=== PATIENT | male | born 1945 | race Caucasian/White ===

== ENCOUNTER 2016-09-05 15:11 | Emergency (ER) | payer MEDICARE ==
[2016-09-05] MEDS ORDERED: Ondansetron INJ* 2 MG/ML VIAL IV ONE (16:04)
[2016-09-05] MEDS ORDERED: Morphine INJ* 4 MG/ML 1 ML SYRINGE IV ONE (16:04)
[2016-09-05] MEDS: NS 0.9% 1000 ML* 2,000 ML IV ONE ×2 (16:25→17:34)
[2016-09-05 16:41] LABS: Hematocrit 30 % (42-52); Hemoglobin 10.1 g/dl (14.0-18.0); Mean Corpuscular HGB Conc 34 g/dl (31-36); Mean Corpuscular Hemoglobin 30 pg (27-31); Mean Corpuscular Volume 90 fL (80-94); Mean Platelet Volume 8 um3 (7.4-10.4); Red Blood Count 3.33 10^6/ul (4.0-5.4); Red Cell Distribution Width 16 % (10.5-15); White Blood Count 8.1 10^3/ul (3.5-10.8)
[2016-09-05 16:44] LABS: Add Diff/Slide Review? Manual Diff Added; Comments Flag Yes
[2016-09-05 16:56] LABS: Albumin 3.4 g/dL (3.2-5.2); BUN/Creatinine Ratio 19.5 (8-20); C Reactive Protein 101.65 mg/L (< 5.00); Calcium 9.3 mg/dL (8.6-10.3); EGFR African American 119.8 (>60); EGFR Non-African American 93.2 (>60); Potassium 4.2 mmol/L (3.5-5.0); Total Bilirubin 0.7 mg/dL (0.2-1.0); Total Protein 6.4 g/dL (6.4-8.9)
[2016-09-05 17:18] LABS: Immature Granulocytes 1 % (0-9); Neutrophil % 66 % (38-83); Reactive Lymph % 3 % (0-6)
[2016-09-05 17:19] LABS: Hypochromasia 1+; Stomatocytes 2+; Target Cells 1+
[2016-09-05 17:20] LABS: Add Path Review? YES
[2016-09-05] MEDS ORDERED: Iohexol 300* (CONTRAST) 10 ML SDV IV ONE (18:19)
--- NOTE | 2016-09-05 18:36 | RAD ---
CLINICAL HISTORY: Right abdominal pain, constipation, history of lymphoma COMPARISON: July 21, 2016 TECHNIQUE: Multiple contiguous axial CT scans were obtained of the abdomen and pelvis after the administration of intravenous contrast. Coronal and sagittal multiplanar reformations are submitted for review. Oral contrast was administered. Delayed images were obtained through the abdomen and pelvis. FINDINGS: LUNG BASES: Again noted are multiple pulmonary parenchymal and pleural-based nodules. There has been progression in size and number of lesions compared to July 21, 2016. LIVER: The liver is diffusely low in attenuation compared to the spleen. There are no focal hepatic parenchymal masses. BILE DUCTS: There is no intrahepatic or extrahepatic biliary dilatation. GALLBLADDER: The gallbladder is normal, without pericholecystic inflammatory change. PANCREAS: The pancreas is normal, without mass or ductal dilatation. SPLEEN: Normal in size and appearance. UPPER GI TRACT: Evaluation of the gastrointestinal tract is limited by incomplete gastric distention. Again noted is a 3 cm diverticulum of the duodenum. SMALL BOWEL AND MESENTERY: The small bowel is normal in contour, course, and caliber. There is no obstruction or dilatation. COLON: Again noted are scattered diverticula of the colon. ADRENALS: Normal bilaterally. KIDNEYS: There has been interval development of moderate right and mild left hydronephrosis BLADDER: Unremarkable PELVIC ORGANS: Again noted is an enlarged prostate with asymmetric enlargement of the seminal vesicles, greater on the right than on the left. This has progressed from the previous examination. AORTA: There is atherosclerosis of the abdominal aorta IVC: Unremarkable LYMPH NODES: There is low-attenuation right inguinal lymph node measuring 1.2 cm in short axis. ABDOMINAL WALL: There is a fat-containing of focal hernia BONES AND SOFT TISSUES: There are mild diffuse degenerative changes. OTHER: None IMPRESSION: 1. THERE HAS BEEN INTERVAL DEVELOPMENT OF RIGHT GREATER THAN LEFT BILATERAL HYDRONEPHROSIS WITH PROGRESSION OF THE ASYMMETRIC ENLARGEMENT OF THE PROSTATE GLAND AND SEMINAL VESICLES. GIVEN THE HISTORY OF LYMPHOMA, THIS IS CONCERNING FOR PROGRESSION OF LYMPHOMATOUS INVOLVEMENT OF THE SEMINAL VESICLES. 2. ADDITIONALLY, THERE HAS BEEN PROGRESSION OF MULTIPLE PULMONARY PARENCHYMAL PLEURAL-BASED NODULES. 3. ATHEROSCLEROSIS. 4. DIVERTICULOSIS
[2016-09-05] MEDS ORDERED: Magnesium CITRATE* 300 ML BTL PO ONE (19:35)
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
[2016-09-05 20:06] VITALS: BP 110/64
== END 2016-09-05 20:05 | disposition home or self-care (01) ==
LOC: ED 15:11
DX: R10.9 Unspecified abdominal pain (principal); N13.30 Unspecified hydronephrosis; R11.2 Nausea with vomiting, unspecified; Z87.891 Personal history of nicotine dependence; K59.00 Constipation, unspecified
CPT/HCPCS: 36415; 74177; 80053; 83605; 83690; 85025; 85060; 85610; 85730; 86140; 96374; 99283; A9270-GY; J2270; J2405; Q9967

== ENCOUNTER 2016-09-08 16:03 | Inpatient (IN) | payer MEDICARE ==
[2016-09-08] MEDS ORDERED: Ondansetron INJ* 2 MG/ML VIAL IV PRN (16:17)
[2016-09-08] MEDS ORDERED: LORazepam TAB(*) 0.5 MG PO PRN (16:18)
[2016-09-08] MEDS ORDERED: Dexamethasone IV* 4 MG/ML 5 ML VIAL (20 MG) ONE (17:23)
[2016-09-08] MEDS: Morphine INJ* 10 MG/ML 1 ML SYRINGE IV PRN ×2 (17:39→21:44)
[2016-09-08] MEDS: Enoxaparin(*) 40 MG/0.4 ML SYR SUBCUT SCH (17:44)
[2016-09-08] MEDS: Pantoprazole IV* 40 MG IV SCH (17:44)
[2016-09-08] MEDS: Dexamethasone IV* 40 MG in NS 0.9% 50 ML* 50 ML IVPB SCH (17:46)
[2016-09-08] MEDS: NS 0.9% 1000 ML* 1,000 ML IV SCH ×2 (18:11→20:07)
[2016-09-08 21:14] LABS: Urine Bilirubin Negative (Negative); Urine Glucose Negative (Negative); Urine Nitrite Negative (Negative)
[2016-09-09] MEDS: Morphine INJ* 10 MG/ML 1 ML SYRINGE IV PRN ×3 (05:28→21:21)
[2016-09-09 06:02] LABS: Hematocrit 27 % (42-52); Hemoglobin 9.1 g/dl (14.0-18.0); Mean Corpuscular HGB Conc 34 g/dl (31-36); Mean Corpuscular Hemoglobin 30 pg (27-31); Mean Corpuscular Volume 90 fL (80-94); Mean Platelet Volume 8 um3 (7.4-10.4); Red Blood Count 3.03 10^6/ul (4.0-5.4); Red Cell Distribution Width 16 % (10.5-15); White Blood Count 5.5 10^3/ul (3.5-10.8)
[2016-09-09 06:04] LABS: Add Diff/Slide Review? Slide Review Added; Comments Flag Yes
[2016-09-09 06:44] LABS: Albumin 2.7 g/dL (3.2-5.2); BUN/Creatinine Ratio 31.7 (8-20); Calcium 8.5 mg/dL (8.6-10.3); EGFR African American 162.4 (>60); EGFR Non-African American 126.3 (>60); Globulin 2.6 g/dL (2-4); Potassium 4.1 mmol/L (3.5-5.0); Total Bilirubin 0.4 mg/dL (0.2-1.0); Total Protein 5.3 g/dL (6.4-8.9)
[2016-09-09] MEDS: NS 0.9% 1000 ML* 1,000 ML IV SCH ×2 (08:04→14:50)
[2016-09-09] MEDS: Clopidogrel TAB* 75 MG PO SCH (08:09)
[2016-09-09] MEDS: Aspirin Low Dose CHEW TAB* 81 MG PO SCH (08:09)
[2016-09-09] MEDS ORDERED: Buffered Lidocaine 0.9% SYRIN* 5 ML/SYR SYRINGE INTRADERM ONE ×2 (11:26)
[2016-09-09] MEDS: Dexamethasone IV* 40 MG in NS 0.9% 50 ML* 50 ML IVPB SCH (11:47)
[2016-09-09] MEDS: Enoxaparin(*) 40 MG/0.4 ML SYR SUBCUT SCH (15:40)
[2016-09-09] MEDS ORDERED: Famotidine IV* 10 MG/ML 2 ML (20 mg) IV ONE (16:00)
[2016-09-09] MEDS ORDERED: Iohexol 180 (CONTRAST) 10 ML SDV IV ONE ×2 (16:18→17:27)
[2016-09-09] MEDS ORDERED: Levofloxacin 500 MG IVPREMIX(* 500 MG/100 ML BAG IVPB ONE (16:58)
[2016-09-09] MEDS ORDERED: fentaNYL* 50 MCG/ML 2 ML VIAL (100 MCG VIAL) ONE (17:05)
[2016-09-09] MEDS ORDERED: Lidocaine 2% PF * 5 ML VIAL ONE (17:19)
[2016-09-09] MEDS ORDERED: Propofol* 10 MG/ML 20 ML BTL IV PUSH ONE (17:19)
[2016-09-09] MEDS ORDERED: Fluorescein 10% INJ* 100 MG/ML AMP ONE (17:22)
[2016-09-09] MEDS ORDERED: DiMENhydriNATE IV* 50 MG/ML VIAL IV PUSH PRN (17:25)
[2016-09-09] MEDS ORDERED: fentaNYL* 50 MCG/ML 2 ML VIAL (100 MCG VIAL) IV PRN (17:25)
[2016-09-09] MEDS ORDERED: Gentamicin ADULT (*) 40 MG/ML VIAL ONE (17:46)
[2016-09-09] MEDS ORDERED: Tamsulosin CAP* 0.4 MG ONE (18:03)
[2016-09-09] MEDS: Pantoprazole IV* 40 MG IV SCH ×2 (18:31→18:46)
[2016-09-09] MEDS ORDERED: NS 0.9% 1000 ML* 1,000 ML IV SCH (19:00)
[2016-09-09] MEDS: Lidocaine 2% JELLY* 6 ML JELLY TOPICAL SCH (21:10)
--- NOTE | 2016-09-09 22:50 | RAD ---
INDICATION: Hydronephrosis COMPARISONS: CT dated September 05, 2016 TECHNIQUE: Fluoroscopy was provided for a retrograde pyelogram and stent placement. Total fluoroscopy time is: 18 seconds FINDINGS: Spot images demonstrate contrast within the renal collecting systems bilaterally, with bilateral hydronephrosis. Bilateral ureteral stents are noted IMPRESSION: FLUOROSCOPY WAS PROVIDED FOR A RETROGRADE PYELOGRAM AND STENT PLACEMENT CPT II Codes: 6045F
--- NOTE | 2016-09-10 00:23 | OP ---
CC: Sandra Brower MD; Umesh Nixon MD; Kassy Kuo MD * DATE OF OPERATION: 09/09/16 - ROOM #411 DATE OF : [birth year] - AGE/SEX: 70 years/male. SURGEON: Neil Kilgore MD ANESTHESIOLOGIST: Dr. Sandoval. ANESTHESIA: General. PRE-OP DIAGNOSES: 1. Bilateral hydronephrosis. 2. Lymphoma. POST-OP DIAGNOSES: 1. Bilateral hydronephrosis. 2. Lymphoma. OPERATIVE PROCEDURE: Cystoscopy, bilateral retrograde pyelograms, bilateral urethral balloon dilatation, and bilateral stent insertion. COMPLICATIONS: None. STENT USED: A 8.5-Dutch 28-cm silicone stent, right and left ureter. POSTOPERATIVE CONDITION: Stable. OPERATING FINDINGS: 1. A soft tissue mass pressing on trigone of urinary bladder (extrinsic pressure probably related to mass and vicinity of seminal vesicles). 2. Bilateral hydronephrosis, right worse than left. INDICATIONS: Floyd Garcia is a 70-year-old gentleman with advanced lymphoma who was noted to have bilateral hydronephrosis. Dr. Nixon called earlier today requesting bilateral stent placement. DESCRIPTION OF PROCEDURE: After induction of general anesthesia, the patient was placed in dorsal lithotomy position, sequential compression devices were in place and functioning. Initial cystoscopy reveled a normal-appearing urethra, a mildly enlarged prostate. The bladder was examined. The trigone was extensively distorted by mass extrinsic to the bladder pressing on the posterior bladder neck and trigone area. This also made it more difficult to localize the ureteral orifices. The right urethral orifice was identified after some initial manipulation and cannulated with a 0.038 guidewire. Retrograde pyelogram revealed right hydronephrosis and proximal hydroureter. The distal ureter was fairly compressed by the extrinsic mass and balloon dilatation was successfully carried out. Once this was done, an 8.5-Dutch 28-cm silicone stent was introduced under fluoroscopic monitoring with good proximal and distal positioning obtained. Next attention was directed to the left side. Once again after the initial retrograde pyelogram, balloon dilatation of the distal ureter was successfully carried out and an 8.5-Dutch 28-cm silicone stent was placed on the left side also. A Govea catheter was placed for temporary bladder drainage. The patient tolerated the procedure satisfactorily and was transferred back to the recovery area in stable condition. [id number]/[facility] #: [id number] MTDAnuja
--- NOTE | 2016-09-10 07:43 | DS ---
- Discharge Summary ADMIT DATE: 09/08/16 DISCHARGE DATE: 09/10/16 DISCHARGE DIAGNOSIS: 1. hydronephrosis 2. uncontrolled nausea and vomiting 3. abdominal pain 4. recurrent lymphoma, transition to diffuse large b cell lymphoma DISCHARGE MEDICATIONS: Home Medications Medication Instructions Recorded Confirmed Type Multiple Vitamin [Multivitamins] 1 cap PO DAILY 03/17/15 09/08/16 History Vitamin E CAP* 400 unit PO DAILY 03/17/15 09/08/16 History Aspirin Low Dose TAB* 81 mg PO DAILY 03/18/16 09/08/16 History Clopidogrel TAB* [Plavix TAB*] 1 tab PO DAILY 04/05/16 09/08/16 History Tamsulosin CAP* [Flomax CAP*] 0.4 mg PO DAILY #30 cap 09/10/16 Rx DISCHARGE FOLLOW UP: 1. 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 treated with RCHOP beginning in March of 2015 with complete response on PET of 07/2015. One year later developed a recurrent lymphoma. PET with varying avidities suggestive of the possibility of recurrence of both his low grade and a high grade lymphoma. Noted to have a very avid seminal vesicle mass, which was biopsied on 09/07. Around the same time he developed refractory nausea and vomiting and abdominal pain. repeat CT with bilateral hydronephrosis. He was admitted for hydration, high dose IV dexamethasone pending diagnosis, and received bilateral ureteral stents last evening. His abdominal pain has essentially resolved and his vomiting is completely gone. His pathology did return recurrent diffuse large b cell lymphoma. His sparks was removed this morning and he is urinating without problems. He is very anxious to go home. He will get a dose of IV dexamethasone today and come in Monday to our office for a dose and for a treatment plan. He will likely need salvage R-ICE. He is constipated and will have treatment prior to discharge. >30 mins spent on this discharge and in counseling
[2016-09-10] MEDS ORDERED: Dexamethasone IV* 4 MG/ML 5 ML VIAL (20 MG) ONE (07:52)
[2016-09-10] MEDS: Clopidogrel TAB* 75 MG PO SCH (07:55)
[2016-09-10] MEDS: Aspirin Low Dose CHEW TAB* 81 MG PO SCH (07:55)
[2016-09-10] MEDS: Lidocaine 2% JELLY* 6 ML JELLY TOPICAL SCH ×2 (07:56→14:01)
[2016-09-10 07:58] LABS: Hematocrit 18 % (42-52); Mean Corpuscular HGB Conc 32 g/dl (31-36); Mean Corpuscular Hemoglobin 29 pg (27-31); Mean Corpuscular Volume 91 fL (80-94); Mean Platelet Volume 8 um3 (7.4-10.4); Red Blood Count 2.02 10^6/ul (4.0-5.4); Red Cell Distribution Width 16 % (10.5-15); White Blood Count 8.1 10^3/ul (3.5-10.8)
[2016-09-10 08:10] LABS: Albumin 2.6 g/dL (3.2-5.2); BUN/Creatinine Ratio 29.3 (8-20); Calcium 8.2 mg/dL (8.6-10.3); EGFR African American 132.8 (>60); EGFR Non-African American 103.3 (>60); Globulin 2.4 g/dL (2-4); Magnesium 1.9 mg/dL (1.9-2.7); Potassium 4.1 mmol/L (3.5-5.0); Total Bilirubin 0.3 mg/dL (0.2-1.0)
[2016-09-10 08:13] LABS: Comments Flag Yes
[2016-09-10 08:16] LABS: Hemoglobin 5.9 g/dl (14.0-18.0)
[2016-09-10 08:37] LABS: Hematocrit 30 % (42-52); Hemoglobin 9.9 g/dl (14.0-18.0); Mean Corpuscular HGB Conc 33 g/dl (31-36); Mean Corpuscular Hemoglobin 30 pg (27-31); Mean Corpuscular Volume 90 fL (80-94); Mean Platelet Volume 8 um3 (7.4-10.4); Red Blood Count 3.36 10^6/ul (4.0-5.4); Red Cell Distribution Width 16 % (10.5-15); White Blood Count 16.2 10^3/ul (3.5-10.8)
[2016-09-10 08:39] LABS: Add Diff/Slide Review? Slide Review Added; Comments Flag Yes
[2016-09-10 08:50] LABS: Albumin 2.9 g/dL (3.2-5.2); BUN/Creatinine Ratio 25.3 (8-20); Calcium 8.6 mg/dL (8.6-10.3); EGFR African American 118.1 (>60); EGFR Non-African American 91.9 (>60); Globulin 2.8 g/dL (2-4); Potassium 4.2 mmol/L (3.5-5.0); Total Bilirubin 0.3 mg/dL (0.2-1.0); Total Protein 5.7 g/dL (6.4-8.9)
[2016-09-10] MEDS ORDERED: Tamsulosin CAP* 0.4 MG PO SCH (09:00)
[2016-09-10 09:02] VITALS: BP 110/48
[2016-09-10] MEDS: Dexamethasone IV* 40 MG in NS 0.9% 50 ML* 50 ML IVPB SCH (09:30)
== END 2016-09-10 15:05 | disposition home or self-care (01) | DRG 694 ==
LOC: MED 16:47
PROVIDERS: ADMIT Internal Medicine Hematology & Oncology; ATTEND Internal Medicine Hematology & Oncology
PROC: BT14ZZZ Fluoroscopy of Kidneys, Ureters and Bladder (ICD-10-PCS; 2016-09-09)
PROC: 0T788DZ Dilation of Bilateral Ureters with Intraluminal Device, Via Natural or Artificial Opening Endoscopic (ICD-10-PCS; principal; 2016-09-09 16:30)
DX: N13.30 Unspecified hydronephrosis (principal); C83.30 Diffuse large B-cell lymphoma, unspecified site; C82.99 Follicular lymphoma, unspecified, extranodal and solid organ sites; R91.8 Other nonspecific abnormal finding of lung field; Z88.0 Allergy status to penicillin; I73.9 Peripheral vascular disease, unspecified; R59.0 Localized enlarged lymph nodes; E78.00 Pure hypercholesterolemia, unspecified; N40.0 Benign prostatic hyperplasia without lower urinary tract symptoms; Z79.82 Long term (current) use of aspirin; Z79.02 Long term (current) use of antithrombotics/antiplatelets; N50.89 Other specified disorders of the male genital organs; K59.00 Constipation, unspecified
CPT/HCPCS: 36415; 49180; 74000; 74177; 74420; 77012; 80053; 81003; 83605; 83690; 83735; 85025; 85060; 85610; 85730; 86140; 88172; 88177; 88184; 88188; 88305; 88360; 96374; 99215; 99222; 99239; 99283; A9270-GY; G0463; J1580; J1642; J1650; J1956; J2270; J2405; J2704; J3010; Q9967

== ENCOUNTER 2016-09-12 06:55 | Inpatient (IN) | payer MEDICARE ==
[2016-09-12] MEDS ORDERED: Morphine INJ* 4 MG/ML 1 ML SYRINGE IV ONE ×2 (07:18→08:42)
[2016-09-12] MEDS ORDERED: Ondansetron INJ* 2 MG/ML VIAL IV ONE (07:18)
[2016-09-12] MEDS ORDERED: NS 0.9% 1000 ML* 1,000 ML IV ONE (07:18)
[2016-09-12 08:15] LABS: Hematocrit 31 % (42-52); Hemoglobin 10.3 g/dl (14.0-18.0); Mean Corpuscular HGB Conc 33 g/dl (31-36); Mean Corpuscular Hemoglobin 30 pg (27-31); Mean Corpuscular Volume 89 fL (80-94); Mean Platelet Volume 9 um3 (7.4-10.4); Red Blood Count 3.48 10^6/ul (4.0-5.4); Red Cell Distribution Width 16 % (10.5-15)
[2016-09-12 08:16] LABS: Add Diff/Slide Review? Slide Review Added
[2016-09-12 08:18] LABS: Albumin 3.1 g/dL (3.2-5.2); C Reactive Protein 54.62 mg/L (< 5.00); EGFR African American 110.4 (>60); EGFR Non-African American 85.9 (>60); Globulin 2.9 g/dL (2-4); Potassium 3.3 mmol/L (3.5-5.0); Total Bilirubin 0.6 mg/dL (0.2-1.0)
--- NOTE | 2016-09-12 08:22 | RAD ---
Indication: Bilateral flank pain. Stent placement 2 days ago. Comparison: September 09, 2016 retrograde pyelogram and stent placement fluoroscopic spot images and September 05, 2016 CT. Technique: Supine view of the abdomen. Report: Innumerable bilateral pulmonary masses visualized at the lung bases. Unremarkable bowel gas pattern. Moderate stool in the colon without significant rectal distension. Bilateral ureteral stents in place. Vascular calcifications noted at the midpole of the LEFT kidney. No suspicious calcifications at the level of either renal fossa or along the expected course of the ureters. Unremarkable soft tissue contours. IMPRESSION: 1. Bilateral ureteral stents in place. No suspicious radiographic finding at the abdomen or pelvis. 2. Bilateral pulmonary masses corresponding with September 05, 2016 CT finding.
[2016-09-12] MEDS ORDERED: Albuterol 2.5 MG/3 ML NEB.SOL* (0.083%) INH PRN (09:24)
[2016-09-12] MEDS ORDERED: Acetaminophen TAB* 325 MG PO PRN (09:24)
[2016-09-12] MEDS ORDERED: Ondansetron INJ* 2 MG/ML VIAL IV PRN (09:24)
[2016-09-12] MEDS ORDERED: Temazepam CAP* 15 MG PO PRN (09:24)
[2016-09-12] MEDS ORDERED: Potassium Chlor TAB* 20 MEQ TAB.ER PO ONE (09:30)
[2016-09-12] MEDS: Enoxaparin(*) 40 MG/0.4 ML SYR SUBCUT SCH (11:30)
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
--- NOTE | 2016-09-12 12:51 | RAD ---
INDICATION: History of metal in LEFT eye. Pre-MRI assessment. COMPARISON: No relevant prior exams available on the [facility] PACS for comparison. TECHNIQUE: AP and lateral views of the orbits were obtained. FINDINGS: No radiopaque foreign bodies are identified at the level of the orbits or visualized calvarium. Dental hardware noted. IMPRESSION: No radiopaque orbital foreign bodies evident.
[2016-09-12] MEDS ORDERED: Gadoteridol* (CONTRAST) 279.3 MG/ML 10 ML IV ONE (13:39)
[2016-09-12] MEDS: Morphine INJ* 2 MG/ML 1 ML SYRINGE IV PRN ×4 (14:24→21:50)
--- NOTE | 2016-09-12 14:56 | RAD ---
Indication: Lymphoma. Nausea and vomiting. Image sequences: Sagittal and axial T1, axial T2, FLAIR, diffusion and susceptibility weighted images of the brain were obtained. 16 mL of ProHance was injected intravenously and postcontrast axial, coronal and sagittal T1-weighted images were repeated. Ventricular structures are midline. No midline shift is noted. The extra-axial spaces are unremarkable. The FLAIR images demonstrates scattered subcortical areas of signal abnormality especially in the frontal lobes bilaterally. These are nonspecific and may represent minor microvascular change or may be associated with migraine headaches. There is no evidence of mass. No evidence of abnormally enhancing lesions are noted. No restriction of diffusion is noted on the diffusion-weighted images. Susceptibility artifact demonstrates no evidence of residual hemosiderin. Mastoid air cells demonstrate some fluid in the right mastoid sinuses. The remainder the paranasal sinuses are unremarkable. Susceptibility artifact from dental work is present. The orbits are grossly unremarkable. IMPRESSION: NONSPECIFIC WHITE MATTER SIGNAL ABNORMALITY IS NOTED IN THE SUBCORTICAL WHITE MATTER BILATERALLY NO OBVIOUS MASS OR ENHANCING LESIONS ARE NOTED. NO ABNORMALLY ENHANCING LESIONS ARE NOTED. NO RESTRICTION OF DIFFUSION IS NOTED. SOME FLUID IN THE RIGHT MASTOID SINUSITIS IS NOTED.
[2016-09-12] MEDS: NS 0.9% w/ 40 Meq KCL 1000 ML* 1,000 ML IV SCH (15:30)
[2016-09-12] MEDS ORDERED: Morphine INJ* 2 MG/ML 1 ML SYRINGE IV PRN (17:16)
[2016-09-12] MEDS ORDERED: Dexamethasone IV* 4 MG/ML 5 ML VIAL (20 MG) ONE (19:05)
[2016-09-12] MEDS: Dexamethasone IV* 12 MG in NS 0.9% 50 ML* 50 ML IVPB ONE ×2 (19:06→19:07)
[2016-09-12] MEDS: Senna TAB PO SCH (20:29)
[2016-09-13 00:10] LABS: Magnesium 1.9 mg/dL (1.9-2.7)
[2016-09-13] MEDS: NS 0.9% w/ 40 Meq KCL 1000 ML* 1,000 ML IV SCH ×2 (04:20→20:42)
[2016-09-13 05:47] LABS: Hematocrit 26 % (42-52); Hemoglobin 8.6 g/dl (14.0-18.0); Mean Corpuscular HGB Conc 33 g/dl (31-36); Mean Corpuscular Hemoglobin 30 pg (27-31); Mean Corpuscular Volume 90 fL (80-94); Mean Platelet Volume 8 um3 (7.4-10.4); Red Blood Count 2.86 10^6/ul (4.0-5.4); Red Cell Distribution Width 16 % (10.5-15); White Blood Count 6.6 10^3/ul (3.5-10.8)
[2016-09-13 06:01] LABS: Albumin 2.6 g/dL (3.2-5.2); BUN/Creatinine Ratio 29.9 (8-20); Calcium 8.6 mg/dL (8.6-10.3); EGFR African American 151.3 (>60); EGFR Non-African American 117.6 (>60); Globulin 2.5 g/dL (2-4); Potassium 4.1 mmol/L (3.5-5.0); Total Bilirubin 0.5 mg/dL (0.2-1.0); Total Protein 5.1 g/dL (6.4-8.9)
[2016-09-13] MEDS: Senna TAB PO SCH ×2 (09:28→20:42)
[2016-09-13] MEDS: Vitamin THERAPEUTIC TAB PO SCH (09:28)
[2016-09-13] MEDS: Tamsulosin CAP* 0.4 MG PO SCH (09:28)
[2016-09-13] MEDS: Aspirin Low Dose CHEW TAB* 81 MG PO SCH (11:29)
[2016-09-13] MEDS: Morphine INJ* 2 MG/ML 1 ML SYRINGE IV PRN ×2 (11:49→16:52)
[2016-09-13] MEDS: Enoxaparin(*) 40 MG/0.4 ML SYR SUBCUT SCH (11:50)
[2016-09-13] MEDS ORDERED: diPHENhydraMINE IV* 50 MG/ML 1 ml VIAL (BENADRYL) ONE (13:16)
[2016-09-13] MEDS ORDERED: diPHENhydraMINE IV* 50 MG in NS 0.9% 50 ML* 50 ML IVPB ONE (13:30)
[2016-09-13] MEDS ORDERED: Acetaminophen TAB* 325 MG PO ONE (13:30)
[2016-09-13] MEDS ORDERED: RITUXIMAB IVPB SCH (14:00)
[2016-09-13] MEDS ORDERED: NS 0.9% IVPB SCH (14:00)
[2016-09-14] MEDS: Morphine INJ* 2 MG/ML 1 ML SYRINGE IV PRN ×2 (04:04→08:26)
[2016-09-14 05:57] LABS: Hematocrit 25 % (42-52); Hemoglobin 8.2 g/dl (14.0-18.0); Mean Corpuscular HGB Conc 33 g/dl (31-36); Mean Corpuscular Hemoglobin 29 pg (27-31); Mean Corpuscular Volume 89 fL (80-94); Mean Platelet Volume 8 um3 (7.4-10.4); Red Blood Count 2.81 10^6/ul (4.0-5.4); Red Cell Distribution Width 16 % (10.5-15); White Blood Count 6.9 10^3/ul (3.5-10.8)
[2016-09-14 06:25] LABS: Albumin 2.4 g/dL (3.2-5.2); BUN/Creatinine Ratio 23.2 (8-20); Calcium 8.2 mg/dL (8.6-10.3); EGFR African American 146.2 (>60); EGFR Non-African American 113.7 (>60); Globulin 2.4 g/dL (2-4); Potassium 3.8 mmol/L (3.5-5.0); Total Bilirubin 0.4 mg/dL (0.2-1.0); Total Protein 4.8 g/dL (6.4-8.9)
[2016-09-14] MEDS: NS 0.9% w/ 40 Meq KCL 1000 ML* 1,000 ML IV SCH (08:26)
[2016-09-14] MEDS: Tamsulosin CAP* 0.4 MG PO SCH (08:31)
[2016-09-14] MEDS: Vitamin THERAPEUTIC TAB PO SCH (08:31)
[2016-09-14] MEDS: Senna TAB PO SCH ×2 (08:31→20:50)
[2016-09-14] MEDS: Enoxaparin(*) 40 MG/0.4 ML SYR SUBCUT SCH (10:23)
--- NOTE | 2016-09-14 11:04 | PN ---
Progress Note - Progress Note SOAP: Subjective: []Feeling well overall, still significant pain with urination, though less bleeding. "[place] now, some clots...but not bright red." States less nausea at this time and no emesis now in a couple days. No BM but "moving" and passing gas. Feels a bit overwhelmed. Asks for to be updated with everything as well. Did fine with Rituximab. No questions about tx. today. PIV right fa bothering him. Medications: Acetaminophen (Tylenol Tab*) 650 mg PO Q4H PRN PRN Reason: FEVER/PAIN Last Admin: 09/13/16 17:33 Dose: 650 mg Albuterol (Ventolin 2.5 Mg/3 Ml Neb.Joseline*) 2.5 mg INH [id number] PRN PRN Reason: sob/wheezing Enoxaparin Sodium (Lovenox(*)) 40 mg SUBCUT Q24H [facility] Last Admin: 09/14/16 10:23 Dose: 40 mg Potassium Chloride/Sodium Chloride (Ns 0.9% W/ 40 Meq Kcl 1000 Ml*) 1,000 mls @ 100 mls/hr IV PER RATE [facility] Last Admin: 09/14/16 08:26 Dose: 100 mls/hr Rituximab 500 mg/ Rituximab (175 mg/ Sodium Chloride) 337.5 mls @ 0 mls/hr IVPB ONCE YAZMIN PRN Reason: As Directed Last Admin: 09/13/16 14:23 Dose: 25 mls/hr Morphine Sulfate (Morphine Inj (Syringe)*) 2 mg IV Q2H PRN PRN Reason: PAIN Last Admin: 09/14/16 08:26 Dose: 2 mg Multivitamins (Theragran Tab*) 1 tab PO DAILY [facility] Last Admin: 09/14/16 08:31 Dose: 1 tab Ondansetron HCl (Zofran Inj*) 4 mg IV Q4H PRN PRN Reason: NAUSEA/VOMITING Last Admin: 09/12/16 17:29 Dose: 4 mg Senna (Senokot Tab*) 1 tab PO BID [facility] Last Admin: 09/14/16 08:31 Dose: 1 tab Tamsulosin HCl (Flomax Cap*) 0.4 mg PO DAILY [facility] Last Admin: 09/14/16 08:31 Dose: 0.4 mg Temazepam (Restoril Cap*) 15 mg PO BEDTIME PRN PRN Reason: INSOMNIA Last Admin: 09/12/16 22:05 Dose: 15 mg Objective: [] Vital Signs Temp Pulse Resp BP Pulse Ox 99.4 F 69 16 123/55 95 09/14/16 07:47 09/14/16 07:47 09/14/16 09:26 09/14/16 07:47 09/14/16 07:47 A&Ox3, EOMI, FLORES HRR, no murmur noted, S1S2 LS clear bilat +BS, abd. soft and tender +PP=bilat., no edema noted Laboratory Results - last 24 hr 09/14/16 09/14/16 05:34 05:34 WBC 6.9 RBC 2.81 L Hgb 8.2 L Hct 25 L MCV 89 MCH 29 MCHC 33 RDW 16 H Plt Count 222 MPV 8 Neut % (Auto) 68.8 Lymph % (Auto) 13.7 L Boyd % (Auto) 15.5 H Eos % (Auto) 1.7 Baso % (Auto) 0.3 Absolute Neuts (auto) 4.7 Absolute Lymphs (auto) 0.9 L Absolute Monos (auto) 1.1 H Absolute Eos (auto) 0.1 Absolute Basos (auto) 0 Absolute Nucleated RBC 0.01 Nucleated RBC % 0.1 Sodium 139 Potassium 3.8 Chloride 108 Carbon Dioxide 27 Anion Gap 4 BUN 16 Creatinine 0.69 Est GFR ( Amer) 146.2 Est GFR (Non-Af Amer) 113.7 BUN/Creatinine Ratio 23.2 H Glucose 87 Calcium 8.2 L Total Bilirubin 0.40 AST 32 ALT 47 Alkaline Phosphatase 63 Total Protein 4.8 L Albumin 2.4 L Globulin 2.4 Albumin/Globulin Ratio 1.0 Assessment: []70 yo m with recurrent lymphoma now on chemotherapy, C1D2 RICE. Plan: []1. Lymphoma: cont. RICE as planned, will need neupogen starting Sun. (D6) 2. Hydronephrosis: s/p stents with decreased bleeding. Follow Cr. 3. PVD: Stop ASA and plavix, cont. DVT prophylactic. 4. N/V/C: improving, though still no BM, can stop K+ replacement
[2016-09-14] MEDS: Aspirin Low Dose CHEW TAB* 81 MG PO SCH (11:22)
[2016-09-14] MEDS ORDERED: Dexamethasone IV* 4 MG/ML 1 ML (4 MG) ONE (12:57)
[2016-09-14] MEDS ORDERED: Dexamethasone IV* 8 MG in NS 0.9% 50 ML* 50 ML IVPB ONE (13:00)
[2016-09-14] MEDS ORDERED: Ondansetron INJ* 2 MG/ML VIAL IV ONE (13:00)
[2016-09-14] MEDS ORDERED: ETOPOSIDE IVPB SCH (14:00)
[2016-09-14] MEDS ORDERED: NS 0.9% IVPB SCH (14:00)
[2016-09-15] MEDS: NS 0.9% 1000 ML* 1,000 ML IV SCH ×2 (03:58→17:07)
[2016-09-15 06:37] LABS: Hematocrit 25 % (42-52); Hemoglobin 8.3 g/dl (14.0-18.0); Mean Corpuscular HGB Conc 33 g/dl (31-36); Mean Corpuscular Hemoglobin 30 pg (27-31); Mean Corpuscular Volume 88 fL (80-94); Mean Platelet Volume 9 um3 (7.4-10.4); Red Blood Count 2.83 10^6/ul (4.0-5.4); Red Cell Distribution Width 16 % (10.5-15); White Blood Count 7.4 10^3/ul (3.5-10.8)
[2016-09-15 06:38] LABS: Add Diff/Slide Review? Slide Review Added; Comments Flag Yes
[2016-09-15 07:10] LABS: Albumin 2.5 g/dL (3.2-5.2); BUN/Creatinine Ratio 28.8 (8-20); Calcium 8.6 mg/dL (8.6-10.3); EGFR African American 175.2 (>60); EGFR Non-African American 136.2 (>60); Globulin 2.4 g/dL (2-4); Potassium 3.7 mmol/L (3.5-5.0); Total Bilirubin 0.4 mg/dL (0.2-1.0); Total Protein 4.9 g/dL (6.4-8.9)
[2016-09-15] MEDS: Tamsulosin CAP* 0.4 MG PO SCH (08:09)
[2016-09-15] MEDS: Vitamin THERAPEUTIC TAB PO SCH (08:09)
[2016-09-15] MEDS: Senna TAB PO SCH ×2 (08:10→21:38)
[2016-09-15] MEDS ORDERED: Fosaprepitant IV* 150 MG in NS 0.9% 250 ML* 145 ML IVPB ONE (09:30)
[2016-09-15] MEDS ORDERED: traMADol TAB* 50 MG PO PRN (09:37)
--- NOTE | 2016-09-15 09:43 | PN ---
Progress Note - Progress Note SOAP: Subjective: []C1D3 RICE Feeling well overall. Pain much better though will occur just prior to peeing. Less blood in urine. No further nausea. BM this AM, large. Still some stomach pain/tenderness. Lovenox inj. sites sore. No neuropathy. Slight headache this AM without vision changes. No SOB. Very concerned about cost of tx. and tearful when talking about certain aspects. Medications: Acetaminophen (Tylenol Tab*) 650 mg PO Q4H PRN PRN Reason: FEVER/PAIN Last Admin: 09/13/16 17:33 Dose: 650 mg Albuterol (Ventolin 2.5 Mg/3 Ml Neb.Joseline*) 2.5 mg INH [id number] AWAKE PRN PRN Reason: sob/wheezing Enoxaparin Sodium (Lovenox(*)) 40 mg SUBCUT Q24H [facility] Last Admin: 09/14/16 10:23 Dose: 40 mg Heparin Sodium (Porcine) (Heparin Flush Port (Ivad)) 5 ml FLUSH DAILY [facility] Last Admin: 09/15/16 07:56 Dose: Not Given Ifosfamide 9,000 mg/ Mesna 9, (000 mg/ Sodium Chloride) 1,000 mls @ 41.667 mls/ hr IVPB ONCE ONE Stop: 09/16/16 15:59 Sodium Chloride (Ns 0.9% 1000 Ml*) 1,000 mls @ 75 mls/hr IV PER RATE [facility] Last Admin: 09/15/16 03:58 Dose: 75 mls/hr Etoposide 180 mg/ Sodium (Chloride) 509 mls @ 509 mls/hr IVPB DAILY@1100 [facility] Stop: 09/16/16 11:59 Carboplatin 575 mg/ Sodium (Chloride) 557.5 mls @ 557.5 mls/hr IVPB ONCE ONE Stop: 09/15/16 12:59 Fosaprepitant 150 mg/ Sodium (Chloride) 150 mls @ 300 mls/hr IVPB ONCE ONE Stop: 09/15/16 09:59 Sodium Chloride (Ns 0.9% 1000 Ml*) 1,000 mls @ 500 mls/hr IV ONCE ONE Stop: 09/15/16 14:59 Dexamethasone Sodium Phosphate (8 mg/ Sodium Chloride) 52 mls @ 208 mls/hr IVPB ONCE ONE Stop: 09/15/16 10:44 Multivitamins (Theragran Tab*) 1 tab PO DAILY [facility] Last Admin: 09/15/16 08:09 Dose: 1 tab Ondansetron HCl (Zofran Inj*) 8 mg IV Q8H [facility] Senna (Senokot Tab*) 1 tab PO BID [facility] Last Admin: 09/15/16 08:10 Dose: 1 tab Tamsulosin HCl (Flomax Cap*) 0.4 mg PO DAILY [facility] Last Admin: 09/15/16 08:09 Dose: 0.4 mg Temazepam (Restoril Cap*) 15 mg PO BEDTIME PRN PRN Reason: INSOMNIA Last Admin: 09/12/16 22:05 Dose: 15 mg Tramadol HCl (Ultram*) 50 mg PO Q6H PRN PRN Reason: PAIN Objective: [] Vital Signs Temp Pulse Resp BP Pulse Ox 97.5 F 55 16 132/61 97 09/15/16 07:35 09/15/16 07:35 09/15/16 09:12 09/15/16 07:35 09/15/16 07:35 A&Ox3, EOMI, FLORES, communicating clearly and states good understanding of plan of care, neuro grossly non-focal HRR, S1S2, no murmur noted LS clear bilat throughout, resp even and non-labored +BS, abd. soft with tenderness and some guarding +PP=bilat. Port LCW benign Laboratory Results - last 24 hr 09/15/16 09/15/16 06:10 06:10 WBC 7.4 RBC 2.83 L Hgb 8.3 L Hct 25 L MCV 88 MCH 30 MCHC 33 RDW 16 H Plt Count 215 MPV 9 Neut % (Auto) 63.5 Lymph % (Auto) 17.6 L Nolan % (Auto) 18.1 H Eos % (Auto) 0.6 Baso % (Auto) 0.2 Absolute Neuts (auto) 4.7 Absolute Lymphs (auto) 1.3 Absolute Monos (auto) 1.3 H Absolute Eos (auto) 0 Absolute Basos (auto) 0 Absolute Nucleated RBC 0.01 Nucleated RBC % 0.1 Sodium 138 Potassium 3.7 Chloride 107 Carbon Dioxide 27 Anion Gap 4 BUN 17 Creatinine 0.59 L Est GFR ( Amer) 175.2 Est GFR (Non-Af Amer) 136.2 BUN/Creatinine Ratio 28.8 H Glucose 107 H Calcium 8.6 Total Bilirubin 0.40 AST 26 ALT 51 Alkaline Phosphatase 63 Total Protein 4.9 L Albumin 2.5 L Globulin 2.4 Albumin/Globulin Ratio 1.0 Assessment: []70 yo m with recurrent DLBCL currently receiving C1 RICE and thus far tolerating well. Plan: []1. Chemo: Cr stable with good urine output therefore will bolus fluid with Ifos per protocol, follow labs daily 2. Pain: doesn't like morphine, trial Tramadol Goal of d/c tomorrow evening with completion of tx.
[2016-09-15] MEDS ORDERED: Dexamethasone IV* 4 MG/ML 1 ML (4 MG) ONE (09:55)
[2016-09-15] MEDS: Enoxaparin(*) 40 MG/0.4 ML SYR SUBCUT SCH (10:07)
[2016-09-15] MEDS: Ondansetron INJ* 2 MG/ML VIAL IV SCH ×2 (10:12→16:16)
[2016-09-15] MEDS ORDERED: Dexamethasone IV* 8 MG in NS 0.9% 50 ML* 50 ML IVPB ONE (10:30)
[2016-09-15] MEDS: NS 0.9% IVPB SCH (11:42)
[2016-09-15] MEDS: ETOPOSIDE IVPB SCH (11:42)
[2016-09-15] MEDS ORDERED: NS 0.9% IVPB ONE ×4 (12:00→16:00)
[2016-09-15] MEDS ORDERED: CARBOPLATIN IVPB ONE ×2 (12:00→15:00)
[2016-09-15] MEDS ORDERED: NS 0.9% 1000 ML* 1,000 ML IV ONE (13:00)
[2016-09-15] MEDS ORDERED: IFOSFAMIDE IVPB ONE ×2 (14:00→16:00)
[2016-09-15] MEDS ORDERED: MESNA IVPB ONE ×2 (14:00→16:00)
[2016-09-16] MEDS: Ondansetron INJ* 2 MG/ML VIAL IV SCH ×2 (02:18→08:26)
[2016-09-16] MEDS: NS 0.9% 1000 ML* 1,000 ML IV SCH (07:40)
[2016-09-16] MEDS: Tamsulosin CAP* 0.4 MG PO SCH (08:25)
[2016-09-16] MEDS: Vitamin THERAPEUTIC TAB PO SCH (08:25)
[2016-09-16] MEDS: Senna TAB PO SCH (08:25)
[2016-09-16] MEDS: Enoxaparin(*) 40 MG/0.4 ML SYR SUBCUT SCH (09:26)
[2016-09-16 09:35] LABS: Hematocrit 27 % (42-52); Hemoglobin 8.8 g/dl (14.0-18.0); Mean Corpuscular HGB Conc 33 g/dl (31-36); Mean Corpuscular Hemoglobin 29 pg (27-31); Mean Corpuscular Volume 88 fL (80-94); Mean Platelet Volume 9 um3 (7.4-10.4); Red Blood Count 3.02 10^6/ul (4.0-5.4); Red Cell Distribution Width 16 % (10.5-15); White Blood Count 6.9 10^3/ul (3.5-10.8)
[2016-09-16 09:54] LABS: Albumin 2.8 g/dL (3.2-5.2); Calcium 8.8 mg/dL (8.6-10.3); EGFR Non-African American 144.7 (>60); Globulin 2.6 g/dL (2-4); Potassium 3.6 mmol/L (3.5-5.0); Total Bilirubin 0.3 mg/dL (0.2-1.0); Total Protein 5.4 g/dL (6.4-8.9)
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
[2016-09-16] MEDS ORDERED: Dexamethasone IV* 8 MG in NS 0.9% 50 ML* 50 ML IVPB ONE (13:00)
[2016-09-16 13:07] VITALS: BP 106/46
[2016-09-16] MEDS ORDERED: Dexamethasone IV* 4 MG/ML 1 ML (4 MG) ONE (13:11)
[2016-09-16] MEDS ORDERED: NS 0.9% 1000 ML* 1,000 ML IV SCH (14:00)
[2016-09-16] MEDS: NS 0.9% IVPB SCH ×2 (14:12→15:42)
[2016-09-16] MEDS: ETOPOSIDE IVPB SCH ×2 (14:12→15:42)
--- NOTE | 2016-09-18 06:49 | DS ---
DISCHARGE SUMMARY: DATE OF ADMISSION: 09/12/16 DATE OF DISCHARGE: 09/16/16 HISTORY OF PRESENT ILLNESS: Mr. Garcia is a 70-year-old male with history of both diffuse large B-cell and low-grade lymphoma treated with chemotherapy in 2014. He more recently was found to have recurrence of his high-grade B-cell lymphoma, found on the biopsy of the right seminal vesicle. He developed bilateral hydronephroses and had stents placed for these by Dr. Kilgore. He was on IV narcotics and IV Decadron for pain control at that time. He was able to be discharged to home. Several days prior to this admission, he developed severe increase in pain in the pelvis, unable to make it bear at home. He was therefore admitted to the hospital. He also has a history of significant peripheral vascular disease having had a left groin stent placed 6 months ago and had been on aspirin and Plavix until recently. HOSPITAL COURSE: The patient was placed on normal saline for hydration given his inability to take it much by mouth and severe nausea, vomiting, and pain. He was given IV Decadron and IV morphine. IV Zofran for nausea. MRI scan of the brain was obtained and was unremarkable in preparation for treating with chemotherapy. Plavix and aspirin were held after discussion with Dr. Jeff given the fact that he was having significant hematuria, status post his urinary stents. Situation was discussed at length with the patient during the hospitalization and once his pain was in better control, decision was made to treat him with R-ICE chemotherapy for his recurrent diffuse large B-cell lymphoma. He received Rituxan on 09/13/16. He had issues with fevers during that administration, but was able to complete his Rituxan. From 09/14/16 to , he received his Etoposide, ifosfamide, and Cytoxan chemotherapy. He tolerated this well. Pain was under much better controlled with portion of the hospitalization. He had no significant nausea or vomiting from the chemotherapy and the nausea and vomiting that had preceded it was also resolved. The patient was to be started on Neupogen 2 days following hospitalization. He was given one dose to take at home of 480 and subsequently returned to the office to receive following day on 09/19/16 and at that point, we will try to continue him on an outpatient basis if approval for Neupogen from his insurance. If not, he will continue to receive this in the office. DISCHARGE DIAGNOSES: 1. Recurrent large B-cell lymphoma, started on chemotherapy. 2. Bilateral hydronephrosis, blockage of the urinary tract from lymphoma in the pelvis. 3. Recent placement of bilateral urinary stents. 4. Hematuria. 5. Abdominal pain. 6. Nausea and vomiting. 7. History of peripheral vascular disease having had recent stents within the last 6 months and having been on dual antiplatelet agents of Plavix and aspirin , stopped during this hospitalization. MEDICATIONS AT THE TIME OF DISCHARGE: Included: 1. Tramadol 50 mg q.6 hours p.r.n. pain. 2. Tamsulosin 0.4 mg daily. 3. The patient was to hold his aspirin and stop his Plavix. [id number]/[facility] #: [id number] MOR[place]
== END 2016-09-16 15:45 | disposition home or self-care (01) | DRG 841 ==
LOC: ED 06:55 → MED 09:24
PROVIDERS: ADMIT Internal Medicine Hematology & Oncology; ATTEND Internal Medicine Hematology & Oncology
PROC: 02HV33Z Insertion of Infusion Device into Superior Vena Cava, Percutaneous Approach (ICD-10-PCS; principal; 2016-09-12)
PROC: 3E04305 Introduction of Other Antineoplastic into Central Vein, Percutaneous Approach (ICD-10-PCS; 2016-09-13)
DX: C83.39 Diffuse large B-cell lymphoma, extranodal and solid organ sites (principal); N13.30 Unspecified hydronephrosis; I73.9 Peripheral vascular disease, unspecified; F32.9 Major depressive disorder, single episode, unspecified; R11.2 Nausea with vomiting, unspecified; Z96.0 Presence of urogenital implants; R31.9 Hematuria, unspecified; R10.9 Unspecified abdominal pain; Z95.820 Peripheral vascular angioplasty status with implants and grafts; Z88.0 Allergy status to penicillin; Z88.1 Allergy status to other antibiotic agents; Z82.49 Family history of ischemic heart disease and other diseases of the circulatory system; Z80.1 Family history of malignant neoplasm of trachea, bronchus and lung; Z87.891 Personal history of nicotine dependence; Z98.1 Arthrodesis status; Z98.42 Cataract extraction status, left eye; Z98.41 Cataract extraction status, right eye; Z83.3 Family history of diabetes mellitus
CPT/HCPCS: 36415; 70030; 70553; 74000; 80053; 83605; 83690; 83735; 85025; 86140; 99231; A9270-GY; A9579; J1100; J1200; J1453; J1642; J1650; J2270; J2405; J9045; J9181; J9209; J9280; J9310

== ENCOUNTER 2016-09-29 09:01 | Observation (INO) | payer MEDICARE ==
[2016-09-29] MEDS ORDERED: Bisacodyl EC TAB* 5 MG PO PRN (10:15)
[2016-09-29] MEDS ORDERED: oxyCODONE TAB* 5 MG TAB PO PRN (10:15)
[2016-09-29] MEDS ORDERED: Polyethylene Glycol 3350* 17 GM PACKET PO PRN (10:18)
[2016-09-29] MEDS ORDERED: Calcium Carbonate CHEW TAB* 500 MG (TUMS) PO PRN (10:19)
[2016-09-29] MEDS ORDERED: diPHENhydraMINE PO* 25 MG PO PRN (10:20)
[2016-09-29] MEDS: Enoxaparin(*) 40 MG/0.4 ML SYR SUBCUT SCH (11:58)
[2016-09-29] MEDS ORDERED: Prochlorperazine TAB* 10 MG PO PRN (12:39)
[2016-09-29] MEDS ORDERED: NS 0.9% IVPB ONE (13:30)
[2016-09-29] MEDS ORDERED: MESNA IVPB ONE (13:30)
[2016-09-29] MEDS ORDERED: IFOSFAMIDE IVPB ONE (13:30)
[2016-09-30] MEDS ORDERED: Tamsulosin CAP* 0.4 MG PO SCH (09:00)
--- NOTE | 2016-09-30 10:54 | PN ---
Progress Note - Progress Note Date of Service: 09/30/16 SOAP: Subjective: []Did well overnight. No difficulty. On cycle 1 had pain from stent but not difficulty with chemotherapy. Bisacodyl (Dulcolax Ec Tab*) 5 mg PO BID PRN PRN Reason: CONSTIPATION Calcium Carbonate (Tums*) 500 mg PO Q4H PRN PRN Reason: INDIGESTION Diphenhydramine HCl (Benadryl Po*) 25 mg PO BEDTIME PRN PRN Reason: ITCHING Enoxaparin Sodium (Lovenox(*)) 40 mg SUBCUT Q24H [facility] Last Admin: 09/29/16 11:58 Dose: 40 mg Ifosfamide 8,900 mg/ Mesna 8, (900 mg/ Sodium Chloride) 1,000 mls @ 41.667 mls/ hr IVPB ONCE ONE Stop: 09/30/16 13:29 Last Admin: 09/29/16 13:40 Dose: 41.667 mls/hr Etoposide 180 mg/ Sodium (Chloride) 509 mls @ 509 mls/hr IVPB ONCE ONE Stop: 09/30/16 14:29 Dexamethasone Sodium Phosphate (8 mg/ Sodium Chloride) 52 mls @ 208 mls/hr IVPB ONCE ONE Stop: 09/30/16 13:14 Sodium Chloride (Ns 0.9% 1000 Ml*) 1,000 mls @ 500 mls/hr IV ONCE ONE Stop: 09/30/16 15:29 Oxycodone HCl (Roxycodone Tab*) 10 mg PO Q8H PRN PRN Reason: PAIN Polyethylene Glycol/Electrolytes (Miralax*) 17 gm PO DAILY PRN PRN Reason: CONSTIPATION Prochlorperazine (Compazine Tab*) 10 mg PO Q6H PRN PRN Reason: NAUSEA Tamsulosin HCl (Flomax Cap*) 0.4 mg PO DAILY [facility] Last Admin: 09/30/16 08:35 Dose: 0.4 mg Objective: [] Vital Signs Temp Pulse Resp BP Pulse Ox 98.2 F 57 16 117/57 98 09/30/16 08:03 09/30/16 08:03 09/30/16 08:03 09/30/16 08:03 09/30/16 08:03 HEENT: mucosa moist CTA Port looks fine Abd w/ mild tenderness, no distention. ext - No c/c/e Assessment: []70 year old with recurrent MCL. Cycle 2 of RICE and doing well. Plan: []1. Will discharge at 4 pm today after infusion is completed 2. Will plan Neupogen 480 mcg over weekend at out patient infusion. 3. Follow up Dr. Nixon next week 4. Call me over weekend with any difficulty
[2016-09-30] MEDS: Enoxaparin(*) 40 MG/0.4 ML SYR SUBCUT SCH (11:31)
[2016-09-30] MEDS ORDERED: Acetaminophen TAB* 325 MG PO PRN (11:57)
--- NOTE | 2016-09-30 12:26 | HP ---
HISTORY AND PHYSICAL: ADDENDUM: DATE OF ADMISSION: 09/29/16 The patient was admitted overnight for RICE chemotherapy. Infused overnight without difficulty. Feeling well today with no side effects. We will discharge later this afternoon after infusion is complete. No changes in medicine. Will come to outpatient Oncology for the next 2 days to have Neupogen , and then be seen in our office on Monday. He will call our office over the weekend for any questions or concerns. He has nausea medicine at home. [id number]/[facility] #: [id number] [place]
[2016-09-30] MEDS ORDERED: ETOPOSIDE IVPB ONE (13:30)
[2016-09-30] MEDS ORDERED: NS 0.9% IVPB ONE (13:30)
[2016-09-30] MEDS ORDERED: NS 0.9% 1000 ML/HR X 1 BAG (TOTAL 1000 ML) IV ONE (13:30)
[2016-09-30] MEDS ORDERED: Dexamethasone IV* 4 MG/ML 1 ML (4 MG) ONE (14:18)
[2016-09-30] MEDS: Dexamethasone IV* 8 MG in NS 0.9% 50 ML* 50 ML IVPB ONE ×2 (14:32→14:53)
[2016-09-30 15:42] VITALS: BP 116/51
== END 2016-09-30 18:00 | disposition home or self-care (01) ==
LOC: INTOOBSV 10:52 → MED 10:52
PROVIDERS: ADMIT Internal Medicine Hematology & Oncology; ATTEND Internal Medicine Hematology & Oncology
DX: Z51.11 Encounter for antineoplastic chemotherapy (principal); C82.99 Follicular lymphoma, unspecified, extranodal and solid organ sites; I73.9 Peripheral vascular disease, unspecified; Z88.1 Allergy status to other antibiotic agents; Z88.0 Allergy status to penicillin
CPT/HCPCS: 36415; 36591; 76775; 80053; 85025; 85060; 96372; 96375; 96413; 96417; 99212; 99217; 99222; A9270-GY; G0378; G0463; J1100; J1200; J1453; J1642; J1650; J2469; J9045; J9181; J9209; J9280; J9310

== ENCOUNTER 2016-10-18 09:30 | Observation (INO) | payer MEDICARE ==
[2016-10-18] MEDS ORDERED: Ondansetron ODT TAB* 4 MG PO PRN (12:06)
[2016-10-18] MEDS ORDERED: MESNA IVPB ONE (13:30)
[2016-10-18] MEDS ORDERED: NS 0.9% IVPB ONE (13:30)
[2016-10-18] MEDS ORDERED: IFOSFAMIDE IVPB ONE (13:30)
[2016-10-18] MEDS: Bisacodyl EC TAB* 5 MG PO PRN (18:39)
[2016-10-18] MEDS ORDERED: oxyCODONE TAB* 5 MG TAB PO SCH (21:00)
[2016-10-19 05:33] LABS: Hematocrit 21 % (42-52); Mean Corpuscular HGB Conc 34 g/dl (31-36); Mean Corpuscular Hemoglobin 31 pg (27-31); Mean Corpuscular Volume 90 fL (80-94); Mean Platelet Volume 8 um3 (7.4-10.4); Red Blood Count 2.29 10^6/ul (4.0-5.4); Red Cell Distribution Width 18 % (10.5-15); White Blood Count 7.5 10^3/ul (3.5-10.8)
[2016-10-19] MEDS ORDERED: Tamsulosin CAP* 0.4 MG PO SCH (09:00)
[2016-10-19] MEDS ORDERED: Potassium Chlor TAB* 10 MEQ TAB.ER PO SCH (09:00)
[2016-10-19] MEDS: Bisacodyl EC TAB* 5 MG PO PRN (09:57)
[2016-10-19] MEDS ORDERED: Metoclopramide TAB* 10 MG PO ONE (11:00)
[2016-10-19] MEDS ORDERED: chlorproMAZINE TAB* 10 MG PO PRN (11:18)
[2016-10-19] MEDS ORDERED: Dexamethasone IV* 8 MG in NS 0.9% 50 ML* 50 ML IVPB ONE (13:00)
[2016-10-19] MEDS ORDERED: Dexamethasone IV* 4 MG/ML 1 ML (4 MG) ONE (13:21)
[2016-10-19] MEDS ORDERED: SODIUM CHLORIDE 0.9% IV ONE (13:30)
[2016-10-19] MEDS ORDERED: NS 0.9% IVPB ONE (13:30)
[2016-10-19] MEDS ORDERED: ETOPOSIDE IVPB ONE (13:30)
[2016-10-19 17:01] VITALS: BP 133/50
[2016-10-19] MEDS ORDERED: Bisacodyl EC TAB* 5 MG PO SCH (21:00)
--- NOTE | 2016-10-20 01:09 | DS ---
DISCHARGE SUMMARY: DATE OF ADMISSION: 10/18/16 DATE OF DISCHARGE: 10/19/16 ATTENDING PHYSICIAN: Umesh Nixon MD * (DICTATED BY [facility] [place]) PRINCIPAL DIAGNOSES: 1. Abdominal pain secondary to diffuse large B-cell lymphoma. 2. Admission for chemotherapy. OTHER DIAGNOSES: Include: 1. Acute hydronephrosis, status post stent placement. 2. Nausea, most likely chemotherapy induced. 3. Peripheral vascular disease, chronic. HOSPITAL COURSE: The details of the history and physical are delineated in Dr. Lozoya's history and physical note. Briefly, the patient is a 70-year-old white male with a history of diffuse large B-cell lymphoma, who is admitted overnight for completion of his RICE chemotherapy. He tolerated the chemotherapy exceptionally well except for some side effects of hiccups. Trialed some Thorazine and Reglan both for nausea and hiccups, and he tolerated that well. His vital signs were stable throughout the course of his stay and he did not have any significant side effects both from the ifosfamide or the etoposide. He will be discharged as soon as his chemotherapy is complete. He is to take his scheduled Neupogen 24 hours after the chemotherapy has been complete and follow up in the office as scheduled as a followup to his chemotherapy and hospital admit. He is to call the office with any uncontrolled side effects and he tolerated chemotherapy well in the hospital. [facility] [place] [id number]/[facility] #: [id number] MTDD
== END 2016-10-19 17:00 | disposition home or self-care (01) ==
LOC: INTOOBSV 11:13 → MED 11:13
PROVIDERS: ADMIT Internal Medicine Hematology & Oncology; ATTEND Internal Medicine Hematology & Oncology
DX: Z51.11 Encounter for antineoplastic chemotherapy (principal); C85.10 Unspecified B-cell lymphoma, unspecified site; R10.9 Unspecified abdominal pain; I73.9 Peripheral vascular disease, unspecified; Z88.2 Allergy status to sulfonamides; Z88.1 Allergy status to other antibiotic agents; Z79.899 Other long term (current) drug therapy
CPT/HCPCS: 36415; 78815; 80053; 85025; 96367; 96375; 96413; 96415; 96417; 99217; 99223; 99239; A9270-GY; A9552; G0378; J1100; J1200; J1453; J1642; J2469; J9045; J9181; J9209; J9280; J9310

== ENCOUNTER 2016-11-04 12:13 | Observation (INO) | payer MEDICARE ==
[2016-11-08] MEDS ORDERED: oxyCODONE TAB* 5 MG TAB PO PRN (11:29)
[2016-11-08] MEDS ORDERED: Ondansetron ODT TAB* 4 MG PO PRN (11:29)
[2016-11-08] MEDS ORDERED: Bisacodyl EC TAB* 5 MG PO PRN (11:29)
[2016-11-08] MEDS ORDERED: Polyethylene Glycol 3350* 17 GM PACKET PO PRN (11:29)
[2016-11-08] MEDS: Enoxaparin(*) 40 MG/0.4 ML SYR SUBCUT SCH (12:43)
[2016-11-08] MEDS: NS 0.9% IVPB ONE ×2 (12:55→16:37)
[2016-11-08] MEDS: IFOSFAMIDE IVPB ONE ×2 (12:55→16:37)
[2016-11-08] MEDS: MESNA IVPB ONE ×2 (12:55→16:37)
[2016-11-08] MEDS: Prochlorperazine TAB* 10 MG PO PRN (16:36)
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
[2016-11-09] MEDS: Prochlorperazine TAB* 10 MG PO PRN ×2 (05:33→11:21)
[2016-11-09 08:36] LABS: Albumin 3.2 g/dL (3.2-5.2); BUN/Creatinine Ratio 22.2 (8-20); Calcium 8.8 mg/dL (8.6-10.3); EGFR African American 162.4 (>60); EGFR Non-African American 126.3 (>60); Globulin 2.3 g/dL (2-4); Hematocrit 26 % (42-52); Hemoglobin 8.6 g/dl (14.0-18.0); Mean Corpuscular HGB Conc 33 g/dl (31-36); Mean Corpuscular Hemoglobin 29 pg (27-31); Mean Corpuscular Volume 88 fL (80-94); Mean Platelet Volume 8 um3 (7.4-10.4); Potassium 3.2 mmol/L (3.5-5.0); Red Blood Count 2.92 10^6/ul (4.0-5.4); Red Cell Distribution Width 20 % (10.5-15); Total Bilirubin 0.4 mg/dL (0.2-1.0); Total Protein 5.5 g/dL (6.4-8.9); White Blood Count 7.7 10^3/ul (3.5-10.8)
[2016-11-09] MEDS ORDERED: Tamsulosin CAP* 0.4 MG PO SCH (09:00)
[2016-11-09] MEDS ORDERED: Dexamethasone IV* 8 MG in NS 0.9% 50 ML* 50 ML IVPB ONE (12:00)
[2016-11-09] MEDS ORDERED: ETOPOSIDE IVPB ONE (13:00)
[2016-11-09] MEDS ORDERED: Potassium Chlor TAB* 20 MEQ TAB.ER PO SCH (13:00)
[2016-11-09] MEDS ORDERED: NS 0.9% IVPB ONE (13:00)
[2016-11-09] MEDS ORDERED: NS 0.9% IV ONE (13:00)
[2016-11-09] MEDS: Enoxaparin(*) 40 MG/0.4 ML SYR SUBCUT SCH (14:56)
[2016-11-09 17:03] VITALS: BP 128/60
--- NOTE | 2016-11-10 05:17 | DS ---
DISCHARGE SUMMARY: DATE OF ADMISSION: 11/08/16 DATE OF DISCHARGE: 11/09/16 ATTENDING PHYSICIAN: Umesh Nixon MD * (dictated by Ole Patel NP). DISCHARGE DIAGNOSES: 1. Lymphoma: Recurrent, completing cycle 4 of RICE chemotherapy. 2. Hiccups: Secondary to chemotherapy, improved with Compazine. 3. Hydronephrosis: Resolved following stents, being followed. DISCHARGE MEDICATIONS: 1. Potassium chloride 40 mEq p.o. b.i.d. 2. Prochlorperazine 10 mg p.o. every 6 hours p.r.n. nausea/hiccups. 3. Tamsulosin 0.4 mg p.o. every day. 4. Bisacodyl 5 mg p.o. b.i.d. p.r.n. constipation. 5. Oxycodone 5 mg, 1 to 2 tablets p.o. q.h.s. p.r.n. sleep/pain. 6. Ondansetron 4 mg sublingual every 6 hours p.r.n. nausea. 7. MiraLAX 17 g p.o. every day p.r.n. constipation. 8. Thorazine 10 mg every 6 hours p.r.n. hiccups. HOSPITAL COURSE: Please see admission note for full H and P. However, briefly Mr. Garcia is well known to our service due to his diagnosis of lymphoma, very recently recurred. He was admitted to the hospital yesterday morning for his fourth cycle of chemotherapy with RICE. He was delayed last week due to decreased counts. During his admission, he tolerated his infusion without difficulty and had minimal complaints. He did have some nausea with decreased appetite as well as hiccups, medications have helped with this side effects. Today, he feels quite well and he is very ready to go home as planned. He will followup in our office starting tomorrow for daily injections of Neupogen as with previous cycles. He is planned for a PET scan on 11/14/16 at 8 a.m. and will followup with Dr. Isaac to consider bone marrow transplant on 11/15/16 at noon. He will also follow up with Dr. Nixon locally on 11/21/16 at 11:20 to discuss plan moving forward. Plan of care was reviewed with Mr. Garcia at length and he denies further questions. He will call our office should anything arise. To note, on discharge day, his potassium was low and he was given extra oral potassium and will be discharged home on oral potassium as well. TIME SPENT: Greater than 20 minutes spent with greater than 50% [id number] counseling. OLE PATEL, CORPORATE COMMUNICATIONS MANAGER [id number]/[facility] #: [id number] [place]
== END 2016-11-09 17:20 | disposition home or self-care (01) ==
LOC: INTOOBSV 11-08 11:07 → MED 11-08 11:07
PROVIDERS: ADMIT Internal Medicine Hematology & Oncology; ATTEND Internal Medicine Hematology & Oncology
DX: Z51.11 Encounter for antineoplastic chemotherapy (principal); C83.30 Diffuse large B-cell lymphoma, unspecified site; I73.9 Peripheral vascular disease, unspecified; Z79.899 Other long term (current) drug therapy
CPT/HCPCS: 36415; 80053; 85025; 96413; 99217; 99220; 99239; A9270-GY; G0378; J1100; J1642; J1650; J9181; J9209; J9280; Q0164

== ENCOUNTER 2016-12-01 08:23 | Observation (INO) | payer MEDICARE ==
[2016-12-01] MEDS ORDERED: chlorproMAZINE TAB* 10 MG PO PRN (09:18)
[2016-12-01] MEDS ORDERED: hydrOXYzine HCL TAB* 10 MG PO PRN (09:18)
[2016-12-01] MEDS ORDERED: Prochlorperazine TAB* 10 MG PO PRN (09:18)
[2016-12-01] MEDS ORDERED: oxyCODONE TAB* 5 MG TAB PO PRN (09:18)
[2016-12-01] MEDS ORDERED: Bisacodyl EC TAB* 5 MG PO PRN (09:18)
[2016-12-01] MEDS ORDERED: IFOSFAMIDE IVPB ONE (13:00)
[2016-12-01] MEDS ORDERED: MESNA IVPB ONE (13:00)
[2016-12-01] MEDS ORDERED: NS 0.9% IVPB ONE (13:00)
[2016-12-01] MEDS: Enoxaparin(*) 40 MG/0.4 ML SYR SUBCUT SCH (13:06)
[2016-12-01] MEDS ORDERED: Ondansetron ODT TAB* 4 MG ONE ×2 (17:39→20:44)
[2016-12-01] MEDS: Polyethylene Glycol 3350* 17 GM PACKET PO SCH (17:40)
[2016-12-01] MEDS ORDERED: Ondansetron ODT TAB* 4 MG PO PRN (20:00)
[2016-12-01] MEDS: Potassium Chlor TAB* 20 MEQ TAB.ER PO SCH (20:53)
[2016-12-02 08:37] LABS: Hematocrit 24 % (42-52); Hemoglobin 7.9 g/dl (14.0-18.0); Mean Corpuscular HGB Conc 34 g/dl (31-36); Mean Corpuscular Hemoglobin 30 pg (27-31); Mean Corpuscular Volume 90 fL (80-94); Mean Platelet Volume 7 um3 (7.4-10.4); Red Blood Count 2.61 10^6/ul (4.0-5.4); Red Cell Distribution Width 23 % (10.5-15); White Blood Count 3.4 10^3/ul (3.5-10.8)
[2016-12-02 08:43] LABS: Comments Flag Yes
[2016-12-02 08:44] LABS: Add Diff/Slide Review? Slide Review Added
[2016-12-02 08:47] LABS: Albumin 3.3 g/dL (3.2-5.2); BUN/Creatinine Ratio 15.8 (8-20); Calcium 8.8 mg/dL (8.6-10.3); EGFR African American 130.4 (>60); EGFR Non-African American 101.4 (>60); Globulin 2.3 g/dL (2-4); Potassium 3.7 mmol/L (3.5-5.0); Total Bilirubin 0.3 mg/dL (0.2-1.0); Total Protein 5.6 g/dL (6.4-8.9)
[2016-12-02] MEDS ORDERED: Atorvastatin* 40 MG TAB PO SCH (09:00)
[2016-12-02] MEDS ORDERED: Tamsulosin CAP* 0.4 MG PO SCH (09:00)
[2016-12-02] MEDS ORDERED: Dexamethasone IV* 4 MG/ML 1 ML (4 MG) ONE (09:07)
[2016-12-02] MEDS: Enoxaparin(*) 40 MG/0.4 ML SYR SUBCUT SCH (10:35)
[2016-12-02] MEDS: Potassium Chlor TAB* 20 MEQ TAB.ER PO SCH (10:39)
[2016-12-02] MEDS: Polyethylene Glycol 3350* 17 GM PACKET PO SCH (10:39)
[2016-12-02] MEDS ORDERED: Dexamethasone IV* 8 MG in NS 0.9% 50 ML* 50 ML IVPB ONE (13:00)
[2016-12-02] MEDS ORDERED: NS 0.9% IVPB ONE (13:20)
[2016-12-02] MEDS ORDERED: ETOPOSIDE IVPB ONE (13:20)
[2016-12-02] MEDS ORDERED: NS 0.9% 1000 ML* 1,000 ML IV ONE (14:20)
[2016-12-02 16:41] VITALS: BP 130/69
== END 2016-12-02 17:00 | disposition home or self-care (01) ==
LOC: INTOOBSV 08:24 → MED 08:24 → UNDOADMIN 08:24
PROVIDERS: ADMIT Internal Medicine Hematology & Oncology; ATTEND Internal Medicine Hematology & Oncology
DX: C83.35 Diffuse large B-cell lymphoma, lymph nodes of inguinal region and lower limb (principal); Z87.891 Personal history of nicotine dependence
CPT/HCPCS: 36415; 80053; 85025; 96372; A9270-GY; G0378; J1100; J1642; J1650; J9181; J9209; J9280; Q0164

== ENCOUNTER 2018-05-11 13:33 | Observation (INO) | payer MEDICARE ==
[2018-05-11] MEDS ORDERED: fentaNYL* 50 MCG/ML 2 ML VIAL (100 MCG VIAL) ONE (14:01)
[2018-05-11] MEDS ORDERED: Midazolam* 1 MG/ML 10 ML VIAL (10 MG) ONE (14:01)
[2018-05-11] MEDS ORDERED: Pantoprazole IV* 40 MG IV ONE (16:08)
[2018-05-11] MEDS ORDERED: Cyclobenzaprine TAB* 10 MG PO PRN (16:09)
[2018-05-11] MEDS ORDERED: Bisacodyl EC TAB* 5 MG PO PRN (16:09)
[2018-05-11] MEDS ORDERED: hydrOXYzine HCL TAB* 10 MG PO PRN (16:09)
[2018-05-11] MEDS ORDERED: PROCHLORPERAZINE INJ 5 MG/ML 2 ML VIAL IV PRN (16:10)
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
[2018-05-11] MEDS: Pantoprazole* 80 mg IN NS 80 MG/250 ML BAG IVPB SCH (20:04)
[2018-05-11 20:12] LABS: Hematocrit 29 % (42-52); Hemoglobin 9.7 g/dl (14.0-18.0); Mean Corpuscular HGB Conc 34 g/dl (31-36); Mean Corpuscular Hemoglobin 31 pg (27-31); Mean Corpuscular Volume 92 fL (80-94); Mean Platelet Volume 8.4 fL (7.4-10.4); Platelet Count 236 10^3/ul (150-450); Red Blood Count 3.12 10^6/ul (4.00-5.40); Red Cell Distribution Width 16 % (10.5-15); White Blood Count 5.5 10^3/ul (3.5-10.8)
[2018-05-11 20:17] LABS: INR 1.03 (0.77-1.02)
[2018-05-11 20:41] LABS: ALT 28 U/L (7-52); Alkaline Phosphatase 155 U/L (34-104); BUN/Creatinine Ratio 15.4 (8-20); Blood Urea Nitrogen 12 mg/dL (6-24); CO2 Carbon Dioxide 27 mmol/L (22-32); Calcium 9.1 mg/dL (8.6-10.3); Chloride 102 mmol/L (101-111); EGFR African American 118.7 (>60); EGFR Non-African American 98.1 (>60); Glucose 90 mg/dL (70-100); Sodium 135 mmol/L (135-145)
[2018-05-11 20:42] LABS: ABS Basophils 0 10^3/ul (0-0.2); ABS Eosinophils 0 10^3/ul (0-0.6); ABS Neutrophils 3.4 10^3/ul (1.5-7.7)
[2018-05-11 20:43] LABS: ABS Neutrophils 2.5 10^3/ul (1.5-7.7); Lymphocytes % 17 %; Monocytes % 15 %; Neutrophil % 61 %; Variant Lymph % 7 % (0-6)
[2018-05-11 20:44] LABS: Anion Gap 6 mmol/L (2-11)
[2018-05-11] MEDS: oxyCODONE TAB* 5 MG TAB PO SCH (21:22)
--- NOTE | 2018-05-11 22:19 | PRO ---
CC: Dr. Umesh Nixon; Dr. Sandra Brower * ESOPHAGOGASTRODUODENOSCOPY: DATE OF PROCEDURE: 05/11/18 PRIMARY CARE PHYSICIAN: Dr. Sandra Brower. INDICATION FOR PROCEDURE: Abdominal pain, abnormal CAT scan, weight loss. PROCEDURE PERFORMED: Complete esophagogastroduodenoscopy with biopsies. MEDICATIONS GIVEN: Include 10 mg IV Midazolam, 100 mcg IV fentanyl. DESCRIPTION OF PROCEDURE: After the EGD and colonoscopy procedure including the risks, benefits, and alternatives, with the risks not limited to perforation , surgery, missed lesions, and/or were explained to the patient, written informed consent was obtained. IV medication was given and a bite-block was placed between the teeth. The adult Olympus gastroscope was inserted into the patient's oropharynx, into the tubular esophagus. The tubular esophagus was normal in appearance. The scope was advanced to the lower esophageal sphincter , into the stomach. The stomach was grossly normal in appearance. On retroflexion, no significant hiatal hernia was visualized. The scope was then advanced through a widely patent pylorus into the duodenal bulb. As soon as I rounded the C-loop, a large mass roughly 80% to 90% of the lumen, ulcerated with an ulcer portion roughly 5 to 6 cm and circumferential friable tissue was encountered. I was able to eventually move past this mass into the more distal duodenum. The tissue appeared relatively normal for 10 to 15 cm and then I encountered another circumferential ulceration with thickening. I biopsied this distal portion separately and then came back to the mass and biopsied this extensively with 9 to 10 total passes. There was some scant oozing before even entering this area. The scope was then removed from the patient. The decision was made not to do the colonoscopy portion given the findings on upper endoscopy and further risk of clinical deterioration if colonoscopy was performed with additional air insufflation. He tolerated the procedure well. He returned to the recovery room in stable condition. IMPRESSION: 1. Complete esophagogastroduodenoscopy with biopsies. 2. Large ulcerated mass in the C-loop to early third portion of the duodenum with scant oozing prior to endoscopy, extensively biopsied. 3. Circumferential thickening distal to this 10 to 15 cm with ulceration, biopsied. RECOMMENDATIONS: I do have concerns because this area was bleeding before I even entered it. The mass is concerning for reoccurrence versus other sequela from prior treatments for his B-cell lymphoma. I think the prudent course would be to at least observe him over the next evening to make sure his blood counts are stable and his abdominal pain is controlled. I discussed the case with Dr. Sinclair and also with Dr. Umesh Nixon , the patient's primary oncologist. Dr. Sinclair has kindly agreed to admit the patient and we will plan on monitoring his blood counts, putting him on IV pantoprazole, and a full liquid diet, in addition wait for result of biopsies for further guidance of care. We will place copy of pictures in chart. This lesion would not be amenable to endoscopic therapy given the size and friability of the tissue. [id number]/[facility] #: [id number] MTDD
[2018-05-11 23:28] LABS: Hematocrit 28 % (42-52); Hemoglobin 9.5 g/dl (14.0-18.0)
[2018-05-12 05:59] LABS: Hematocrit 28 % (42-52); Hemoglobin 9.5 g/dl (14.0-18.0); Mean Corpuscular HGB Conc 34 g/dl (31-36); Mean Corpuscular Hemoglobin 31 pg (27-31); Mean Corpuscular Volume 91 fL (80-94); Mean Platelet Volume 7.3 fL (7.4-10.4); Platelet Count 186 10^3/ul (150-450); Red Blood Count 3.11 10^6/ul (4.00-5.40); Red Cell Distribution Width 16 % (10.5-15); White Blood Count 5.1 10^3/ul (3.5-10.8)
[2018-05-12 06:23] LABS: BUN/Creatinine Ratio 10.8 (8-20); Calcium 8.8 mg/dL (8.6-10.3); EGFR African American 126.2 (>60); EGFR Non-African American 104.3 (>60); Potassium 3.7 mmol/L (3.5-5.0)
[2018-05-12] MEDS: Pantoprazole* 80 mg IN NS 80 MG/250 ML BAG IVPB SCH ×2 (06:54→17:45)
[2018-05-12 07:32] LABS: ABS Basophils 0 10^3/ul (0-0.2); ABS Eosinophils 0.1 10^3/ul (0-0.6); ABS Lymphocytes 1.7 10^3/ul (1.0-4.8); ABS Monocytes 0.8 10^3/ul (0-0.8); ABS Neutrophils 2.5 10^3/ul (1.5-7.7); ABS Nucleated RBC 0 10^3/ul; Eosinophil % 1.4 %; Lymphocyte % 33.8 %; Nucleated Red Blood Cells % 0.1
[2018-05-12] MEDS: Atorvastatin* 40 MG TAB PO SCH (08:45)
[2018-05-12] MEDS: Tamsulosin CAP* 0.4 MG PO SCH (08:45)
[2018-05-12] MEDS ORDERED: Morphine INJ* 2 MG/ML 1 ML SYRINGE (TWO MG - NEW SYRINGE VERSION) IV PRN (08:47)
--- NOTE | 2018-05-12 15:29 | PN ---
Subjective Date of Service: 05/12/18 Interval History: HOSPITALIST PROGRESS NOTE Patient seen and examined at bedside. Care reviewed and d/w Demetrice Cr RN. He feels a little better today. Abdominal pain is still present, but relieved by Morphine. Denies N/V, wants to advance his diet. Family History: Unchanged from Admission Social History: Unchanged from Admission Past Medical History: Unchanged from Admission Objective Active Medications: Atorvastatin Calcium (Lipitor*) 40 mg PO DAILY [facility] Last Admin: 05/12/18 08:45 Dose: Not Given Bisacodyl (Dulcolax Ec Tab*) 5 mg PO BID PRN PRN Reason: CONSTIPATION Cyclobenzaprine HCl (Flexeril Tab*) 10 mg PO TID PRN PRN Reason: Pain/Muscle spasms Hydroxyzine HCl (Atarax Tab*) 10 mg PO TID PRN PRN Reason: ITCHING Pantoprazole Sodium (Protonix Iv Bag*) 80 mg in 250 mls @ 25 mls/hr IVPB Q10H [facility] Last Admin: 05/12/18 06:54 Dose: 25 mls/hr Morphine Sulfate (Morphine Inj ((Syringe))*) 1 mg IV Q1H PRN PRN Reason: Moderate to Severe Pain Last Admin: 05/12/18 09:04 Dose: 1 mg Oxycodone HCl (Roxycodone Tab*) 5 mg PO BEDTIME [facility] Last Admin: 05/11/18 21:22 Dose: 5 mg Prochlorperazine Edisylate (Compazine Inj*) 5 mg IV Q6H PRN PRN Reason: NAUSEA/VOMITING Tamsulosin HCl (Flomax Cap*) 0.4 mg PO DAILY [facility] Last Admin: 05/12/18 08:45 Dose: Not Given Vital Signs - 8 hr 05/12/18 05/12/18 05/12/18 07:51 07:52 08:00 Temperature 98.7 F Pulse Rate 59 55 Respiratory 38 22 Rate Blood Pressure 102/53 (mmHg) O2 Sat by Pulse 95 95 Oximetry 05/12/18 05/12/18 09:04 11:42 Temperature Pulse Rate Respiratory 16 16 Rate Blood Pressure (mmHg) O2 Sat by Pulse Oximetry Oxygen Devices in Use Now: None Appearance: Elderly thin gentleman lying in bed in [facility]. Eyes: No Scleral Icterus Ears/Nose/Mouth/Throat: Mucous Membranes Moist Neck: Trachea Midline Respiratory: Symmetrical Chest Expansion and Respiratory Effort, Clear to Auscultation Cardiovascular: RRR - Normal S1 and S2 Abdominal: NL Sounds; No Tenderness; No Distention Extremities: No Edema Neurological: Alert and Oriented x 3, NL Muscle Strength and Tone, - - [place] - Nutrition: Malnutrition Diagnosis/Plan Malnutrition Assessment by Registered Dietitian: Malnutrition Assessment Clinical Characteristics Acute,Severe Malnutrition Assessment: < or = 50% est needs x > or = days Criteria > 5% wt loss x 1 mo (~9%) Malnutrition Assessment: Soft diet to start @ D 05/12 Interventions Monitor intake for adequacy Malnutrition Assessment: Goals 1. Pt will tolerate soft diet without GI distress 2. Intake will be adequate to preserve lean body mass and prevent unintended wt loss Result Diagrams: 05/12/18 05:40 05/12/18 05:40 Assess/Plan/Problems-Billing Assessment: Mr Garcia is a 72yo M with PMH of B cell lymphoma s/p chemo, PVD, who presented to [facility] for outpatient EGD, found to have a large ulcerated duodenal tumor. - Patient Problems (1) Upper GI bleed Comment: - Secondary to ulcerated duodenal tumor, with oozing. - H/H remains stable. - Continue Protonix drip. - Aspirin still on hold for now. (2) Malignant tumor of duodenum Comment: - Suspect recurrence of B cell lymphoma. - Also at risk for obstruction. - Will advance diet as tolerated - if able to tolerate it, may go home in AM and f/u with Dr Nixon after biopsy result. If unable to tolerate diet, may need other means of nutrition (i.e. TPN) until further management of tumor (surgery vs chemo vs radiation). (3) Malnutrition Comment: - Acute severe malnutrition as evidenced by < or = 50% est needs and > 5% wt loss x 1 mo (~9%). - Trial of PO diet as tolerated. (4) DVT prophylaxis Comment: - SCDs. (5) Full code status Status and Disposition: Continue OBV for now.
--- NOTE | 2018-05-12 20:08 | PN ---
Hospitalist Progress Note Date of Service: 05/12/18 HOSPITALIST ADDENDUM Called by RN earlier as patient had 4 beats of Vtach, asymptomatic. Electrolytes are normal. Will continue to monitor on Telemetry.
[2018-05-12] MEDS: oxyCODONE TAB* 5 MG TAB PO SCH (21:40)
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
[2018-05-13] MEDS: Pantoprazole* 80 mg IN NS 80 MG/250 ML BAG IVPB SCH (04:06)
[2018-05-13] MEDS: Tamsulosin CAP* 0.4 MG PO SCH (09:50)
[2018-05-13] MEDS: Atorvastatin* 40 MG TAB PO SCH (09:50)
[2018-05-13 11:52] VITALS: BP 112/60
--- NOTE | 2018-05-13 20:24 | DS ---
DISCHARGE SUMMARY: DATE OF ADMISSION: 05/11/18 DATE OF DISCHARGE: 05/13/18 PRIMARY DIAGNOSES: 1. Upper gastrointestinal bleed. 2. Duodenal mass. HOSPITAL COURSE: A 72-year-old male with past medical history of peripheral vascular disease, B-cell lymphoma treated with chemotherapy by Dr. Nixon in 2017. Initially, presented to Dr. Kauffman's office with complaints of 1 month of abdominal pain associated with 5 to 10 pound weight loss with constipation and pain, worse after eating. He underwent endoscopy with Dr. Kauffman, which showed C- loop large new obstructing mass, ulcerated and oozing blood, which Dr. Kauffman was concerned about and the patient was admitted to the hospital for further evaluation and monitoring of his blood counts. The patient was placed on a PPI drip and currently transitioned to p.o. Protonix 40 p.o. b.i.d. that he is being discharged on. Please refer to the endoscopy report for full details. Mass concerning for recurrence versus other sequelae from previous treatments for his B-cell lymphoma. Was initially placed on a full liquid diet and tolerated advanced diet. Biopsies were taken and at this time pathology is pending. The patient was also seen by Dr. Nixon. Please refer to his consultation for full details. Significant progression noted on outpatient PET scan and highly suspicious EGD findings. The patient followed up with Dr. Nixon as an outpatient. He recommended repeat CAT scan of the abdomen and pelvis and further management per Dr. Nixon. May possibly need surgery versus radiation or chemo. Further decision per the patient's oncologist after pathology is available. The patient did not want to get his CT scan today and wants to do this as an outpatient. The patient is eager to go home and assures to follow up with his oncologist and primary care doctor as an outpatient. Vitals and labs noted to be stable at discharge. Hemoglobin noted to be 9.5. WBC 5.1, hemoglobin 9.5, hematocrit 28, platelets noted to be 186. Sodium 138, potassium 3.7, chloride 106, CO2 27, BUN 8, creatinine 0.7. MEDICATION LIST: 1. Oxycodone, which is his home med, 5 mg at bedtime. 2. Flomax 0.4 mg daily. 3. Pantoprazole 40 mg p.o. b.i.d. 4. Zofran 4 mg as needed. 5. Flaxseed oil. 6. Cyclobenzaprine 10 mg p.o. as needed. 7. Lipitor 40 mg p.o. daily. PHYSICAL EXAM: HEENT: NCAT. Heart: S1, S2 present. Regular at the time of exam. Lungs: Clear to auscultation bilaterally. Abdomen: Soft. Extremities : No edema. Neuro: Alert, oriented. FOLLOWUP: The patient to follow up with his PCP in 1 to 2 weeks. The patient also to follow up with Dr. Nixon in 1 to 2 weeks. TIME SPENT: Total time spent on discharge is equal to 40 minutes. [id number]/[facility] #: [id number]
== END 2018-05-13 12:50 | disposition home or self-care (01) ==
LOC: ENDO 13:33 → MED 18:01
PROVIDERS: ADMIT Internal Medicine; ATTEND Internal Medicine
DX: K92.2 Gastrointestinal hemorrhage, unspecified (principal); K31.89 Other diseases of stomach and duodenum; Z87.81 Personal history of (healed) traumatic fracture; Z85.72 Personal history of non-Hodgkin lymphomas; Z79.82 Long term (current) use of aspirin; R10.9 Unspecified abdominal pain; E46 Unspecified protein-calorie malnutrition
CPT/HCPCS: 36415; 80048; 80053; 83735; 85014; 85018; 85025; 85610; 88305; 88341; 88342; 96374; 96375; 99156; 99157; A9270-GY; G0378; J1642; J2250; J2270; J3010

== ENCOUNTER 2018-11-11 21:47 | Emergency (ER) | payer MEDICARE ==
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
[2018-11-11] MEDS ORDERED: NS 0.9% 1000 ML** 1,000 ML IV ONE (22:32)
[2018-11-11 23:25] LABS: ABS Lymphocytes 0.6 10^3/ul (1.0-4.8); ABS Monocytes 0.4 10^3/ul (0-0.8); ABS Neutrophils 1.7 10^3/ul (1.5-7.7); Hematocrit 29 % (42-52); Hemoglobin 9.9 g/dL (14.0-18.0); Lymphocyte % 22.6 %; Mean Corpuscular HGB Conc 34 g/dL (31-36); Mean Corpuscular Hemoglobin 31 pg (27-31); Mean Corpuscular Volume 92 fL (80-94); Mean Platelet Volume 8.4 fL (7.4-10.4); Nucleated Red Blood Cells % 0.1; Platelet Count 71 10^3/uL (150-450); Red Blood Count 3.17 10^6 /uL (4.18-5.48); Red Cell Distribution Width 20 % (10-15); White Blood Count 2.7 10^3/uL (3.5-10.8)
[2018-11-11 23:31] LABS: INR 0.97 (0.82-1.09)
[2018-11-11 23:41] LABS: ALT 42 U/L (7-52); AST 22 U/L (13-39); Albumin 2.9 g/dL (3.2-5.2); Albumin/Globulin Ratio 1.2 (1-3); Alkaline Phosphatase 144 U/L (34-104); Anion Gap 8 mmol/L (2-11); BUN/Creatinine Ratio 49.2 (8-20); Blood Urea Nitrogen 32 mg/dL (6-24); CO2 Carbon Dioxide 24 mmol/L (22-32); Chloride 103 mmol/L (101-111); EGFR African American 146.5 (>60); EGFR Non-African American 121.1 (>60); Globulin 2.4 g/dL (2-4); Glucose 175 mg/dL (70-100); Magnesium 1.7 mg/dL (1.9-2.7); Potassium 3.9 mmol/L (3.5-5.0); Sodium 135 mmol/L (135-145); Total Protein 5.3 g/dL (6.4-8.9)
[2018-11-11 23:50] LABS: Troponin I 0.04 ng/mL (<0.04)
[2018-11-11 23:56] LABS: TSH (Thyroid Stimulating Horm) 0.33 mcIU/mL (0.34-5.60)
[2018-11-12] MEDS ORDERED: NS 0.9% 1000 ML** 1,000 ML IV ONE (00:48)
[2018-11-12] MEDS ORDERED: Magnesium CITRATE* 300 ML BTL PO ONE (00:53)
[2018-11-12 00:55] LABS: Urine Appearance Cloudy; Urine Bacteria Absent (Absent); Urine Bilirubin Negative (Negative); Urine Blood Negative (Negative); Urine Color Yellow; Urine Glucose Negative (Negative); Urine Ketones Negative (Negative); Urine Nitrite Negative (Negative); Urine Protein 1+(30 mg/dL) (Negative); Urine Red Blood Cell Absent (Absent); Urine Specific Gravity 1.025 (1.010-1.030); Urine Urobilinogen Negative (Negative); Urine White Blood Cell Absent (Absent)
[2018-11-12 02:41] LABS: Troponin I 0.05 ng/mL (<0.04)
[2018-11-12 05:34] LABS: Troponin I 0.05 ng/mL (<0.04)
[2018-11-12 06:38] VITALS: BP 132/71
--- NOTE | 2018-11-12 14:54 | PN ---
Progress Note - Progress Note Date of Service: 11/11/18 Note: Final read by radiology: IMPRESSION: 1. NO EVIDENCE FOR ACUTE FINDING. 2. MULTIPLE BILATERAL NODULAR DENSITIES WHICH APPEAR TO CORRELATE WITH PARTIALLY CALCIFIED PLEURAL-BASED LESIONS ON THE PRIOR PET/CT STUDY WHICH WERE NOT PET AVID. R1F Preliminary Imaging Read R1F Known findings. No change in treatment noted.
== END 2018-11-12 06:36 | disposition home or self-care (01) ==
LOC: ED 21:47
DX: E86.0 Dehydration (principal); R55 Syncope and collapse; R91.8 Other nonspecific abnormal finding of lung field; Z88.1 Allergy status to other antibiotic agents; Z88.0 Allergy status to penicillin; Z79.899 Other long term (current) drug therapy; Z87.891 Personal history of nicotine dependence
CPT/HCPCS: 36415; 71045; 80053; 81003; 81015; 83605; 83735; 84443; 84484; 85025; 85610; 85730; 86850; 86900; 86901; 93005; 96360; 96361; 99283; A9270-GY